=== PATIENT | female | born 1980 | race Two or more races ===

== ENCOUNTER 2023-04-03 08:15 | Inpatient (IN) | payer OTHER ==
[~2023-04-03] VITALS: Ht 157.5 cm; Wt 72.6 kg
[2023-04-03] MEDS ORDERED: DICY20TA PO (10:45)
[2023-04-03] MEDS ORDERED: PREVACID15 M1 PO (10:45)
[2023-04-03] MEDS ORDERED: PEPCID AC10 MG PO (10:45)
[2023-04-06] MEDS ORDERED: LANSOPRAZOLE30 MG (11:35)
[2023-04-06] MEDS ORDERED: DEXLANSOPRAZOLE60 MG (11:36)
[2023-04-06] MEDS ORDERED: AZELASTIN-FLUTI23 GM (11:36)
[2023-04-06] MEDS ORDERED: MEGESTROL ACETA40 MG (11:36)
== END 2023-04-07 17:06 | disposition home or self-care (01) | DRG 743 ==
LOC: OB/GYN 04-06 07:00 → O/R 04-06 10:02 → OB/GYN 04-06 16:56 → SURG 04-06 19:23
PROVIDERS: ADMIT Obstetrics & Gynecology; ATTEND Obstetrics & Gynecology
PROC: 0UT74ZZ Resection of Bilateral Fallopian Tubes, Percutaneous Endoscopic Approach (ICD-10-PCS; 2023-04-06)
PROC: 0UT94ZZ Resection of Uterus, Percutaneous Endoscopic Approach (ICD-10-PCS; principal; 2023-04-06 07:00)
DX: D25.1 Intramural leiomyoma of uterus (principal); D25.2 Subserosal leiomyoma of uterus; N84.1 Polyp of cervix uteri; D25.0 Submucous leiomyoma of uterus; Z20.822 Contact with and (suspected) exposure to COVID-19